=== PATIENT | male | born 2005 | race Caucasian/White ===

== ENCOUNTER 2023-08-19 20:40 | Emergency (ER) | payer MEDICARE, SELFPAY ==
[2023-08-19 20:45] VITALS: BP 138/82
--- NOTE | 2023-08-19 22:34 | ED.GENMED ---
History of Present Illness
General
Chief Complaint: Musculo-Skeletal Complaint
Time Seen by Provider: 08/19/23 22:19
Travel History
Have you had any contact with someone who has COVID-19?: No
Do you have any symptoms of coronavirus? Fever > 100 degrees, chills, cough, shortness of breath, sore throat, loss of taste or smell, muscle aches, or headache?: No
History of Present Illness
History of Present Illness:
HPI: Patient was playing basketball and is not quite sure how this happened but suddenly developed left knee pain while playing. He says that the knee went laterally. He has an antalgic gait.
EXAM:
GENERAL: Well appearing in no distress
HEENT: Moist oral mucosa
NEUROLOGIC: Excellent strength all extremities, no coordination deficits
PSYCHIATRIC: Appropriate mental status, normal insight and judgement
EXTREMITIES: Nontender, no edema, patellar and quad tendons are intact, there is decreased active range of motion in the flexion of the left knee, the patella is in normal position
SKIN: No rash, no lesions
ED COURSE:
10:30 PM: I initially evaluated
NUMBER AND COMPLEXITY OF PROBLEMS ADDRESSED AT THE ENCOUNTER
� Chronic conditions affecting care: ADHD/bipolar
� Acute Exacerbation and/or Progression of Chronic Illness: This is an acute
� Differential Diagnosis includes: Internal derangement of the knee, meniscal injury, patellar dislocation, ACL/MCL injury, knee sprain
AMOUNT AND/OR COMPLEXITY OF DATA TO BE REVIEWED AND ANALYZED
� I performed an independent evaluation of and my interpretation is:
EKG:
CT:
X-rays: X-ray showed no clear acute abnormality
Laboratory Studies:
Other:
� Review of other/old records: The patient was here in 2020 with a sprained knee
� Clinical information was obtained by an independent historian:
� Prescriptions/Medications Considered but not given:
� Further testing considered but not performed:
RISK OF COMPLICATIONS AND/OR MORBIDITY OR MORTALITY OF PATIENT MANAGEMENT
� Social determinants of health affecting care: Stays at a nursing home
� Discussion with other providers:
� Escalation of care including admission/observation vs risk of discharge considered: Will give crutches and recommend NSAIDs and Ortho follow-up
Phy Exam
Physical Exam
Physical Exam:
See HPI
Course
Orders/Labs/Results
Orders:
Orders
08/19/23 20:47
CR Knee - Left 4 Or More View* Urgent
Comment:
Reason For Exam: injury
08/19/23 22:30
Crutches-Treatment ONCE
Ibuprofen [Motrin] 600 mg PO NOW STA
Vital Signs
Initial and Last Documented VS:
Initial Vital Signs
Temp Pulse Resp BP Pulse Ox
98.3 F 89 20 138/82 99
08/19/23 20:45 08/19/23 20:45 08/19/23 20:45 08/19/23 20:45 08/19/23 20:45
Last Documented Vital Signs
Temp Pulse Resp BP Pulse Ox
98.3 F 89 20 138/82 99
08/19/23 20:45 08/19/23 20:45 08/19/23 20:45 08/19/23 20:45 08/19/23 20:45
*Critical Care Note
Total Time (30-74mins, 75-104mins- exclusive of procedures): Not Applicable
ED Attending Note
-
Portions of this chart may have been created with voice recognition software.� Occasional wrong word or��sound alike� substitutions may have occurred due to the inherent limitations of voice recognition software.
Discharge Plan
Departure
Patient Disposition: Home (Routine Discharge)
Date of Disposition: 08/19/23
Time of Disposition: 22:31
Patient with high blood pressure during this ER visit?: Yes
Discharge Problem:
Injury of knee, left
Instructions: Knee Pain (DC)
Referrals:
Ramon Antunez MD [Active] - Follow up in 2-3 days
UNKNOWN - PT NOT,INTERVIEWE [Family Provider] -
Activity Restrictions/Additional Instructions:
I have given you the contact information for a local orthopedist. Use crutches for comfort and take [id number] ibuprofen for pain. I recommend 3-4 [id number] ibuprofen (Motrin) every 8 hours with food for a few days. Return here if
worse.
Interventions
Interventions:
*Risk Screen - Suicide Last Done: 08/19/23 20:45
*General Assessment Last Done: 08/19/23 20:45
*Neglect/Abuse Screening Last Done: 08/19/23 21:41
ED- Fall Risk Assessment Last Done: 08/19/23 21:41
*ED COVID-19 Vaccine History Last Done: 08/19/23 21:41
ED-Musculoskeletal Assessment Last Done: 08/19/23 21:41
[2023-08-19 22:39] VITALS: BMI 27.9
[2023-08-19] MEDS: MOTRIN 600 MG PO (22:40)
== END 2023-08-19 22:56 | disposition home or self-care (01) ==
LOC: EMR 20:40
PROVIDERS: EMERGENCY PHYSICIAN Emergency Medicine
DX: S89.92XA Unspecified injury of left lower leg, initial encounter (principal); X58.XXXA Exposure to other specified factors, initial encounter; Y93.67 Activity, basketball; F90.9 Attention-deficit hyperactivity disorder, unspecified type; F31.9 Bipolar disorder, unspecified; R03.0 Elevated blood-pressure reading, without diagnosis of hypertension
CPT/HCPCS: 99283; 73564